=== PATIENT | male | born 2000 | race Caucasian/White ===

== ENCOUNTER 2021-11-21 17:30 | Emergency (ER) | payer OTHER ==
[2021-11-21] MEDS ORDERED: predniSONE 20 MG TABLET PO STA (17:38)
--- NOTE | 2021-11-21 17:40 | ED Physician Documentation ---
PD HPI SKIN - Stated complaint Stated Complaint: SKIN RASH - History obtained from History obtained from: Patient - Additional information Additional information: 21-year-old gentleman with psoriasis. He just got stationed here with the [employer] and does not have any of his meds. He is having a psoriasis flare that he thinks is related to stress. In the past topical scalp foam and Clobetasol elsewhere have been helpful. Review of Systems Constitutional: reports: Reviewed and negative Ears: reports: Reviewed and negative Nose: reports: Reviewed and negative Throat: reports: Reviewed and negative PD PAST MEDICAL HISTORY - Present Medications Home Medications: Ambulatory Orders Medication Instructions Recorded Confirmed Betamethasone Valerate [Luxiq] 1 appful TP DAILY #200 gm 11/21/21 Clobetasol 0.05% Oint [Temovate 1 applic TOP BID #4 tub 11/21/21 0.05% Oint] predniSONE [Deltasone] 60 mg PO DAILY 5 Days #15 tablet 11/21/21 - Allergies Allergies/Adverse Reactions: Allergies Allergy/AdvReac Type Severity Reaction Status Date / Time No Known Drug Allergies Allergy Verified 11/21/21 17:39 PD ED PE NORMAL - Vitals Vital signs reviewed: Yes - General General: Alert and oriented X 3, No acute distress - Derm Derm: Other (Almost innumerable psoriasis lesions on the trunk especially over the extensor surfaces of the arms. Seems to spare the face.) - Neuro Neuro: Alert and oriented X 3, Normal speech Results - Vitals Vitals: Vital Signs - 24 hr 11/21/21 17:33 Temperature 37.0 C Heart Rate 75 Respiratory 18 Rate Blood Pressure 135/68 H O2 Saturation 100 Oxygen O2 Source Room air Departure - Departure Disposition: 01 Home, Self Care Clinical Impression: Psoriasis Condition: Good Record reviewed to determine appropriate education?: Yes Instructions: ED Psoriasis Prescriptions: predniSONE [Deltasone] 60 mg PO DAILY 5 Days #15 tablet Betamethasone Valerate [Luxiq] 1 appful TP DAILY #200 gm Clobetasol 0.05% Oint [Temovate 0.05% Oint] 1 applic TOP BID #4 tub Comments: Follow-up with your base physician as scheduled for consideration for referral for dermatology. Return for new or worsening symptoms.
[2021-11-21 17:41] VITALS: BP 135/68
== END 2021-11-21 17:47 | disposition home or self-care (01) ==
LOC: ED 17:30
DX: L40.9 Psoriasis, unspecified (principal)
CPT/HCPCS: 99282; 99283; J7512

== ENCOUNTER 2021-11-29 14:38 | Emergency (ER) | payer OTHER ==
[2021-11-29 14:45] VITALS: BP 121/68
--- NOTE | 2021-11-29 15:02 | ED Physician Documentation ---
History of Present Illness - Stated complaint Stated Complaint: PSORIASIS - Chief complaint Chief Complaint: General - History obtained from History obtained from: Patient - Additonal information Additional information: 21-year-old gentleman with history of psoriasis, newly stationed here with the [employer], was seen about a week ago for a flare and did get improvement with oral and topical steroids, but is running out of all the meds and the flare is getting worse again. Review of Systems Constitutional: reports: Reviewed and negative Eyes: reports: Reviewed and negative Nose: reports: Reviewed and negative Cardiac: reports: Reviewed and negative Respiratory: reports: Reviewed and negative PD PAST MEDICAL HISTORY - Past Surgical History Past Surgical History: No - Present Medications Home Medications: Ambulatory Orders Medication Instructions Recorded Confirmed predniSONE [Deltasone] 60 mg PO DAILY 5 Days #15 tablet 11/21/21 Betamethasone Valerate [Luxiq] 1 appful TP DAILY #200 gm 11/29/21 Clobetasol 0.05% Oint [Temovate 1 applic TOP BID #4 tub 11/29/21 0.05% Oint] predniSONE [Deltasone] 60 mg PO DAILY 5 Days #15 tablet 11/29/21 - Allergies Allergies/Adverse Reactions: Allergies Allergy/AdvReac Type Severity Reaction Status Date / Time No Known Drug Allergies Allergy Verified 11/29/21 14:45 - Social History Does the pt smoke?: No Smoking Status: Never smoker Does the pt drink ETOH?: No Does the pt have substance abuse?: No - Immunizations Immunizations are current?: Yes - POLST Patient has POLST: No PD ED PE NORMAL - Vitals Vital signs reviewed: Yes - General General: Alert and oriented X 3, No acute distress - Derm Derm: Other (Discoid psoriasis especially on the trunk more so than the extensor surfaces of the arms, the flexor surfaces of the arms are spared.) - Neuro Neuro: Alert and oriented X 3, Normal speech Results - Vitals Vitals: Vital Signs - 24 hr 11/29/21 14:43 Temperature 36.4 C L Heart Rate 77 Respiratory 16 Rate Blood Pressure 121/68 O2 Saturation 96 Oxygen O2 Source Room air Departure - Departure Disposition: Home, Self Care Clinical Impression: Psoriasis Condition: Good Record reviewed to determine appropriate education?: Yes Instructions: ED Psoriasis Prescriptions: predniSONE [Deltasone] 60 mg PO DAILY 5 Days #15 tablet Betamethasone Valerate [Luxiq] 1 appful TP DAILY #200 gm Clobetasol 0.05% Oint [Temovate 0.05% Oint] 1 applic TOP BID #4 tub Comments: As discussed, we are repeating the oral and topical steroids but seems reasonabl e to follow-up with your doctor this week as scheduled for reevaluation and likely referral to dermatology. Return for new or worsening symptoms. Discharge Date/Time: 11/29/21 15:05
== END 2021-11-29 15:05 | disposition home or self-care (01) ==
LOC: ED 14:38
DX: Z76.0 Encounter for issue of repeat prescription (principal); L40.9 Psoriasis, unspecified
CPT/HCPCS: 99283

== ENCOUNTER 2022-12-26 17:45 | Emergency (ER) | payer OTHER ==
[2022-12-26 18:17] VITALS: BP 113/58; O2SAT 96
[2022-12-26 19:36] LABS: B. PARAPERTUSSIS- RESP PCR PAN NOT DETECTED; B. PERTUSSIS- RESP PCR PANEL NOT DETECTED; C. PNEUMONIAE- RESP PCR PANEL NOT DETECTED; CORONAVIRUS 229E-RESP PCR NOT DETECTED; CORONAVIRUS HKU1-RESP PCR NOT DETECTED; CORONAVIRUS NL63-RESP PCR NOT DETECTED; CORONAVIRUS OC43-RESP PCR NOT DETECTED; HUMAN METAPNEUMOVIRUS NOT DETECTED; INFLUENZA A- RESP PCR PANEL NOT DETECTED; INFLUENZA B - RESP PCR PANEL NOT DETECTED; M. PNEUMONIAE- RESP PCR PANEL NOT DETECTED; PARAINFLUENZA VIRUS 1 NOT DETECTED; PARAINFLUENZA VIRUS 2 NOT DETECTED; PARAINFLUENZA VIRUS 3 NOT DETECTED; PARAINFLUENZA VIRUS 4 NOT DETECTED; RHINOVIRUS/ENTEROVIRUS NOT DETECTED; RSV- RESP PCR PANEL NOT DETECTED; SARS-CoV-2 -RESP PCR PANEL NOT DETECTED
[2022-12-26] MEDS ORDERED: AZITHROMYCIN 250 MG TABLET PO STA (19:45)
[2022-12-26] MEDS ORDERED: BENZONATATE 100 MG CAPSULE PO STA (19:45)
--- NOTE | 2022-12-26 19:46 | ED Physician Documentation ---
PD HPI DYSPNEA - Stated complaint Stated Complaint: COUGH/HEAD PX/CP - Chief complaint Chief Complaint: Resp - History obtained from History obtained from: Patient - Additional information Additional information: 22-year-old gentleman with psoriasis on Cosentyx has been sick for a week with a productive cough, shortness of breath. Cough productive of yellow sputum. Less so sinus drainage. No fevers. No recent travel. PD PAST MEDICAL HISTORY - Past Surgical History Past Surgical History: No - Present Medications Home Medications: Ambulatory Orders Medication Instructions Recorded Confirmed predniSONE [Deltasone] 60 mg PO DAILY 5 Days #15 tablet 11/21/21 Betamethasone Valerate [Luxiq] 1 appful TP DAILY #200 gm 11/29/21 Clobetasol 0.05% Oint [Temovate 1 applic TOP BID #4 tub 11/29/21 0.05% Oint] predniSONE [Deltasone] 60 mg PO DAILY 5 Days #15 tablet 11/29/21 Azithromycin [Zithromax] 1 tab PO DAILY #4 tab 12/26/22 Benzonatate [Tessalon] 200 mg PO TID PRN #20 cap 12/26/22 - Allergies Allergies/Adverse Reactions: Allergies Allergy/AdvReac Type Severity Reaction Status Date / Time No Known Drug Allergies Allergy Verified 12/26/22 18:05 - Social History Does the pt smoke?: No Smoking Status: Never smoker Does the pt drink ETOH?: No Does the pt have substance abuse?: No - Immunizations Immunizations are current?: Yes - POLST Patient has POLST: No PD ED PE NORMAL - Vitals Vital signs reviewed: Yes - General General: Alert and oriented X 3, No acute distress - HEENT HEENT: Other (TMs normal, oropharynx normal. He was concerned about thrush but I do not see any.) - Neck Neck: No adenopathy - Cardiac Cardiac: RRR, No murmur - Respiratory Respiratory: No respiratory distress, Clear bilaterally, Other (Bronchitic cough with deep breathing) - Derm Derm: Normal color, Warm and dry - Neuro Neuro: Alert and oriented X 3, Normal speech Results - Vitals Vitals: Vital Signs - 24 hr 12/26/22 18:05 Temperature 36.8 C Heart Rate 64 Respiratory 16 Rate Blood Pressure 113/58 L O2 Saturation 96 Oxygen O2 Source Room air - Labs Labs: Laboratory Tests 12/26/22 18:10 Nasal Adenovirus (PCR) NOT DETECTED Nasal B. parapertussis DNA (PCR) NOT DETECTED Nasal Coronavir 229E PCR NOT DETECTED Nasal Coronavir HKU1 PCR NOT DETECTED Nasal Coronavir NL63 PCR NOT DETECTED Nasal Coronavir OC43 PCR NOT DETECTED Nasal Enterovir/Rhinovir PCR NOT DETECTED Nasal Influenza B PCR NOT DETECTED Nasal Influenza A PCR NOT DETECTED Nasal Parainfluen 1 PCR NOT DETECTED Nasal Parainfluen 2 PCR NOT DETECTED Nasal Parainfluen 3 PCR NOT DETECTED Nasal Parainfluen 4 PCR NOT DETECTED Nasal RSV (PCR) NOT DETECTED Nasal B.pertussis DNA PCR NOT DETECTED Nasal C.pneumoniae (PCR) NOT DETECTED Adán Human Metapneumo PCR NOT DETECTED Nasal M.pneumoniae (PCR) NOT DETECTED Nasal SARS-CoV-2 (PCR) NOT DETECTED PD Medical Decision Making - ED course ED course: Given his immunocompromise on Cosentyx and the length of his illness, weeks seems reasonable to trial antibiotics especially in light of negative bio fire. Departure - Departure Disposition: 01 Home, Self Care Clinical Impression: Bronchitis Condition: Good Record reviewed to determine appropriate education?: Yes Instructions: ED Upper Resp Infec Abx Tx Prescriptions: Benzonatate [Tessalon] 200 mg PO TID PRN #20 cap PRN Reason: Cough Azithromycin [Zithromax] 1 tab PO DAILY #4 tab Comments: I sent your prescriptions electronically to the [facility] in [place]. Take it easy for the next couple of days and drink plenty of fluids. Return if you worsen or develop fevers. 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 Forms: Activity restrictions
== END 2022-12-26 19:57 | disposition home or self-care (01) ==
LOC: ED 17:45
DX: J40 Bronchitis, not specified as acute or chronic (principal); Z20.822 Contact with and (suspected) exposure to COVID-19
CPT/HCPCS: 87633; 99283; 99284; A9270

== ENCOUNTER 2023-01-03 15:28 | Emergency (ER) | payer OTHER ==
[2023-01-03 15:45] VITALS: BP 135/60; O2SAT 98
--- NOTE | 2023-01-03 16:29 | ED Physician Documentation ---
PD HPI URI - Stated complaint Stated Complaint: FATIGUE,COUGH - Chief complaint Chief Complaint: Resp - History obtained from History obtained from: Patient - History of Present Illness Timing - onset: How many weeks ago (2) Timing duration: Weeks (2) Timing details: Gradual onset, Still present (seen last week in ER and given Rx of zithromax and tessalon without any improvement. Feels actually worse cough and some dyspnea. Persistent productive cough. Skipped his eczema med last week since is immunosuppresive. States has white exudate on tongue and throat now as well.) Associated symptoms: Sore throat, Productive cough, Dyspnea. No: Fever, Chills, Nasal congestion, Sinus pain, Hemoptysis, Chest pain Contributing factors: Other (eczema and gets monthly injections for it. This is immunosuppressive.). No: Sick contact, COPD / asthma Similar symptoms before: Has not had sx before Recently seen: Emergency Dept Review of Systems Constitutional: denies: Fever, Chills Nose: denies: Rhinorrhea / runny nose, Congestion Throat: reports: Sore throat Cardiac: denies: Chest pain / pressure Respiratory: reports: Dyspnea, Cough GI: denies: Abdominal Pain Skin: reports: Rash (he says his eczema has increased the past several days, he feels due to missed meds but also perhasp response to illness.) PD PAST MEDICAL HISTORY - Past Medical History Cardiovascular: None Respiratory: None Derm: Eczema - Past Surgical History Past Surgical History: No - Present Medications Home Medications: Ambulatory Orders Medication Instructions Recorded Confirmed predniSONE [Deltasone] 60 mg PO DAILY 5 Days #15 tablet 11/21/21 Betamethasone Valerate [Luxiq] 1 appful TP DAILY #200 gm 11/29/21 Clobetasol 0.05% Oint [Temovate 1 applic TOP BID #4 tub 11/29/21 0.05% Oint] predniSONE [Deltasone] 60 mg PO DAILY 5 Days #15 tablet 11/29/21 Azithromycin [Zithromax] 1 tab PO DAILY #4 tab 12/26/22 Benzonatate [Tessalon] 200 mg PO TID PRN #20 cap 12/26/22 Albuterol Sulf [Ventolin Hfa 2 puffs INH QID #1 each 01/03/23 Inhaler] Doxycycline Hyclate 100 mg PO BID 7 Days #14 cap 01/03/23 Nystatin [Mycostatin] 5 ml PO QID 5 Days #100 ml 01/03/23 dexAMETHasone [Decadron] 4 mg PO DAILY #7 tablet 01/03/23 - Allergies Allergies/Adverse Reactions: Allergies Allergy/AdvReac Type Severity Reaction Status Date / Time No Known Drug Allergies Allergy Verified 01/03/23 15:32 - Social History Does the pt smoke?: No Smoking Status: Never smoker Does the pt drink ETOH?: No Does the pt have substance abuse?: No - Immunizations Immunizations are current?: Yes - POLST Patient has POLST: No PD ED PE NORMAL - Vitals Vital signs reviewed: Yes - General General: Alert and oriented X 3, No acute distress, Well developed/nourished - HEENT HEENT: Ears normal, Other (tongue with some white exudate, but could be c/w geographism rather than thrush. Posterior pharynx with some redness generally without exudate. Tonsils not enlarged. ) - Neck Neck: Supple, no meningeal sign, No adenopathy - Cardiac Cardiac: RRR, No murmur - Respiratory Respiratory: No respiratory distress, Other (no coarse sounds. No wheezing per se, but does have hoarse cough response to attempted deep breathing. ) Results - Vitals Vitals: Vital Signs - 24 hr 01/03/23 01/03/23 15:32 17:21 Temperature 36.6 C Heart Rate 60 65 Respiratory 16 20 Rate Blood Pressure 135/60 H O2 Saturation 98 Oxygen O2 Source Room air - Rads (name of study) chest xray Relevant Findings:: Prelim report reviewed (no acute cardiopulmonary process. ), EMP independent interpretation of test (no infiltrates) PD Medical Decision Making - ED course Complexity details: considered differential, d/w patient ED course: he had had bronchitis symptoms not improved with zithromax and tessalon. Frequent coughing with breathing. Feeling dypenas but not wheezing per se. CXR without infiltrates. Given Albuterol MDI in ER with good improvement in his cough and feeling of breathing. Can treat with Albuterol MDI, different antibiotic (I feel doxycycline would be good choice for this), and decadron for bronchial irritation/inflammation, since MDI helped. This can also likely help with his eczema exac (since missed dose of usual eczema med due to bronchitis s ymptoms). Departure - Departure Disposition: 01 Home, Self Care Clinical Impression: Acute bronchitis, Oral thrush Condition: Stable Record reviewed to determine appropriate education?: Yes Instructions: ED Upper Resp Infec Abx Tx Prescriptions: dexAMETHasone [Decadron] 4 mg PO DAILY #7 tablet Doxycycline Hyclate 100 mg PO BID 7 Days #14 cap Nystatin [Mycostatin] 5 ml PO QID 5 Days #100 ml Albuterol Sulf [Ventolin Hfa Inhaler] 2 puffs INH QID #1 each Comments: I would try doxycycline antibiotic twice daily for a week see if that works better for your bronchitis. Use the albuterol inhaler 2 to 3 puffs 4 times daily to help with breathing and cough. Decadron steroid daily for the next 7 days as well. As a side bonus, the Decadron may help with your psoriasis as well. For the whiteness on the tongue and redness in the throat, this may be thrush in we gave you a dose of Diflucan antifungal here. We can follow-up with antifungal oral medication 4 times a day for the next 5 days. I sent your prescriptions all to [facility] pharmacy. They are closed at this time but you should be able to pick them up in the morning. Forms: PCP List Discharge Date/Time: 01/03/23 17:52
[2023-01-03] MEDS ORDERED: ALBUTEROL 1 PUFF INH STA (16:49)
[2023-01-03] MEDS ORDERED: dexAMETHasone 4 MG TABLET PO STA (16:50)
[2023-01-03] MEDS ORDERED: DOXYCYCLINE 100 MG TABLET PO STA (16:50)
[2023-01-03] MEDS ORDERED: FLUCONAZOLE 100 MG TABLET PO STA (16:55)
--- NOTE | 2023-01-03 17:41 | XRAY Report ---
PROCEDURE: Chest 1 View X-Ray INDICATIONS: cough TECHNIQUE: One view of the chest was acquired. COMPARISON: None. FINDINGS: Surgical changes and devices: None. Lungs and pleura: No pleural effusions or pneumothorax. Lungs are clear. Mediastinum: Mediastinal contours appear normal. Heart size is normal. Bones and chest wall: No suspicious bony lesions. Overlying soft tissues appear unremarkable. IMPRESSION: No acute cardiopulmonary process. Reviewed by: Gilberto Alarcon MD on 01/03/2023 5:39 PM PDT Approved by: Gilberto Alarcon MD on 01/03/2023 5:39 PM PDT Station ID: [id number]
== END 2023-01-03 17:52 | disposition home or self-care (01) ==
LOC: ED 15:28
DX: J20.9 Acute bronchitis, unspecified (principal); B37.0 Candidal stomatitis
CPT/HCPCS: 71045; 94640; 94664; 99283; 99284; A9270; J8540

== ENCOUNTER 2023-07-11 20:57 | Emergency (ER) | payer OTHER ==
--- NOTE | 2023-07-11 22:14 | ED Physician Documentation ---
PD HPI BACK PAIN - Stated complaint Stated Complaint: ABD/BACK PX - Chief complaint Chief Complaint: Back Pain - History obtained from History obtained from: Patient - History of Present Illness Timing - onset: Today (onset of upper abd pain today, somewhat increased with movement. Not changed with eating apple. Otherwise had not eaten today. No noted injury to abd. Also having lumbar back pain for 2-3 weeks. Had had lumbar compression fx 2 years ago with occ pain. Worse the past few weeks after some lifting box.) Timing - details: Gradual onset Location: Lower, Right, Left Quality: Pain, Aching Associated symptoms: No: Fever, Weakness, Numbness, Incontinent of urine Worsened by: Movement Contributing factors: Lifting Similar symptoms before: Diagnosis (had compression fx it sounds like (pt not sure of type of fx) from lifting couple years ago. No particular treatment other than restricted lifting for month. He states it "never fully healed" as he gets low back pain intermittently with some activities.) Review of Systems Constitutional: denies: Fever, Chills Nose: denies: Rhinorrhea / runny nose, Congestion Throat: denies: Sore throat GI: reports: Abdominal Pain (today in upper abd.), Nausea. denies: Abdominal Swelling, Vomiting, Diarrhea : denies: Dysuria, Frequency, Incontinent Neurologic: denies: Focal weakness, Numbness PD PAST MEDICAL HISTORY - Past Medical History Past Medical History: Yes Cardiovascular: None Respiratory: None Derm: Eczema, Psoriasis - Past Surgical History Past Surgical History: Yes HEENT: Other - Present Medications Home Medications: Ambulatory Orders Medication Instructions Recorded Confirmed Secukinumab [Cosentyx Sensoready 300 mg INJ UD 07/11/23 07/11/23 (2 Pens)] Lidocaine Patch 5% [Lidoderm Patch] 1 patch TOP DAILY PRN #10 patch 07/12/23 Meloxicam [Mobic] 7.5 mg PO BID 15 Days #30 tablet 07/12/23 - Allergies Allergies/Adverse Reactions: Allergies Allergy/AdvReac Type Severity Reaction Status Date / Time No Known Drug Allergies Allergy Verified 07/11/23 21:20 - Social History Does the pt smoke?: No Smoking Status: Never smoker Does the pt drink ETOH?: No Does the pt have substance abuse?: No - Immunizations Immunizations are current?: Yes - POLST Patient has POLST: No PD ED PE NORMAL - Vitals Vital signs reviewed: Yes - General General: Alert and oriented X 3, Well developed/nourished - HEENT HEENT: Pharynx benign - Cardiac Cardiac: RRR, No murmur - Respiratory Respiratory: No respiratory distress, Clear bilaterally - Abdomen Abdomen: Normal bowel sounds, Soft, Non tender, Non distended - Male Male : Deferred - Rectal Rectal: Deferred - Back Back: No CVA TTP, No spinal TTP (but some tender in mid lumbar muscles both sides, left more. ) - Derm Derm: Normal color Results - Vitals Vitals: Vital Signs - 24 hr 07/11/23 07/12/23 21:12 00:18 Temperature 36.6 C Heart Rate 81 64 Respiratory 16 18 Rate Blood Pressure 102/72 136/75 H O2 Saturation 97 100 Oxygen O2 Source Room air - Rads (name of study) abd/pelvic CT Relevant Findings:: Prelim report reviewed (no acute process), EMP independent interpretation of test PD Medical Decision Making - ED course Complexity details: reviewed results (CT abd pelvis without acute abnormalities. Spine appears normal and major organs in abd without findings. ), considered differential, d/w patient Reviewed Lab Results: The patient interestingly said he does not like needles and would prefer not to get any blood tests. He is concerned about a reinjury of his low back from medium lifting recently. He also today has this pain in the upper abdomen. Shared discussion with the patient would be to do noncontrast imaging and that would look at his spine to see if any obvious new deformities and also would tell us about upper abdominal organs and therefore exclude issues like pancreatitis or cysts or liver problems etc. in lieu of doing any blood tests. The CT came back looking normal. Still in consideration would be myofascial back pain and possibly some epigastric stomach pain acutely although muscular abdominal wall may be possible as well given his some pain with movement. Mylanta here did not have any improvement or effect. Will treat more like mu scular abdominal pain rather than gastritis. For his back he has been using ibuprofen a lot so there could be some irritation of the stomach but again no change with antacids. I would try a longer acting anti-inflammatory for ease of convenience of use. Combine with Tylenol as needed. [place]. Departure - Departure Disposition: Home, Self Care Clinical Impression: Back pain, Epigastric abdominal pain Condition: Stable Instructions: ED Low Back Pain Injury, ED Epigastric Pain [facility] Follow-Up: GRACIE HUNT MD [Primary Care Provider] - Prescriptions: Lidocaine Patch 5% [Lidoderm Patch] 1 patch TOP DAILY PRN #10 patch PRN Reason: pain Meloxicam [Mobic] 7.5 mg PO BID 15 Days #30 tablet Comments: Your CT scan does not show any acute bony abnormalities. Your back pain likely is more myofascial with ligaments and muscles. There can be some element of misalignment. Massage chiropractic and physical therapy can all be good. Follow-up with your primary care regarding potential physical therapy to help with your back. I would also suggest a longer acting anti-inflammatory such as meloxicam twice daily with food for the next couple of weeks. Your can add Tylenol every 4-6 hours if needed for that and also can try some lidocaine patches in the area that hurts daily. I find the patches to not be source of improvement for sure but to have an incremental benefit. Regarding your stomach pain right now, the CT does not show any acute intra- abdominal processes. Is could be muscular. Consideration would be stomach but it did not seem to be impacted by the antacid. Therefore hopefully the same anti-inflammatory would help for some of that. Follow-up with your primary care in the next several days if not improved well. Follow-up with regard to the back pain anyway for potential physical therapy or other treatments. I sent your prescription to your preferred pharmacy. Discharge Date/Time: 07/12/23 00:19
[2023-07-11] MEDS: FAMOTIDINE 20 MG TABLET PO STA (22:47)
[2023-07-11] MEDS: ONDANSETRON ODT 4 MG TABLET TL STA (22:47)
[2023-07-11] MEDS: MAG HYDROX/AL HYDROX/SIMETH 30 ML UDC PO STA (22:48)
--- NOTE | 2023-07-11 23:17 | CT Report ---
PROCEDURE: Abdomen/Pelvis WO INDICATIONS: left upper abd/back pain TECHNIQUE: A CT scan of the abdomen and pelvis was performed without the use of intravenous contrast. Images we re recorded and evaluated at appropriate window settings. Reformats: coronal and sagittal. For radiat ion dose reduction, the following was used: automated exposure control, adjustment of mA and/or kV ac cording to patient size. COMPARISON: None. FINDINGS: Image quality: Diagnostic. Lower chest: Unremarkable. Liver: No contour-deforming mass. Gallbladder and biliary tree: No radiopaque stones or wall thickening. No biliary dilation. Spleen: No splenomegaly. Pancreas: No pancreatic ductal dilation. Adrenals: No adrenal nodule. Kidneys and ureters: No hydronephrosis. No renal cystic lesion which requires follow up. No solid mas s. Stomach, bowel and peritoneum: No bowel distension. No pathologic free fluid. Lymph nodes: No central or retroperitoneal adenopathy. Vessels: No infrarenal aortic aneurysm. PELVIS Reproductive organs: Unremarkable. Bladder: No wall thickness, accounting for underdistention. Pelvic lymph nodes: No pelvic adenopathy by size criteria. Bones: No aggressive osseous abnormality. Other: No significant ventral or inguinal hernia. IMPRESSION: No hydronephrosis or obstructing renal stone. No acute abnormality in the abdomen or pelvis. Reviewed by: Jose Brooks MD on 07/11/2023 11:16 PM PDT Approved by: Jose Brooks MD on 07/11/2023 11:16 PM PDT Station ID: [id number]
[2023-07-12] MEDS: NAPROXEN 250 MG TABLET PO STA (00:15)
[2023-07-12] MEDS: ACETAMINOPHEN 325 MG TABLET PO STA (00:15)
[2023-07-12 00:27] VITALS: BP 136/75; O2SAT 100
== END 2023-07-12 00:19 | disposition home or self-care (01) ==
LOC: ED 20:57
DX: R10.13 Epigastric pain (principal); M54.9 Dorsalgia, unspecified
CPT/HCPCS: 74176; 99284; A9270; Q0162